=== PATIENT | male | born 1945 | race Caucasian/White ===

== ENCOUNTER 2017-03-19 17:11 | Inpatient (IN) | payer MEDICARE ==
[2017-03-19] MEDS ORDERED: Ondansetron ODT 4 MG TAB PO PRN (18:53)
[2017-03-19] MEDS ORDERED: PROVENTIL INHALER 6.7 G (200 INHALATIONS) INH PRN (18:59)
[2017-03-19] MEDS: Mupirocin 2% Ointment 22 GM Tube TOP SCH (21:21)
[2017-03-19] MEDS: Famotidine 20 MG TAB PO SCH (21:21)
[2017-03-19] MEDS: Carvedilol 3.125 MG TAB PO SCH (21:21)
[2017-03-19 22:29] LABS: Bilirubin Negative (Negative); Blood, Urine Large (Negative); Clarity Cloudy (Clear); Glucose, Urine (Dipstick) Negative (Negative); Leukocyte Moderate (Negative); Nitrite Negative (Negative); Protein, Urine (Dipstick) > or equal to 300 mg/dL (Neg-Trace); pH, Urine 7.5 (5.0-9.0)
[2017-03-19 22:44] LABS: Bacteria/HPF 3+ HPF (None Seen); Squamous Epithelial None Seen HPF (0-3)
[2017-03-20] MEDS: Mometasone/Formoterol 60 PUFF AER INH SCH ×2 (05:46→17:27)
[2017-03-20 06:06] LABS: #Eosinphils 0.3 thou/uL (0.0-0.7); #Lymphocytes 1.4 thou/uL (1.20-3.40); #Monocytes 0.7 thou/uL (0.11-0.59); #Neutrophils 8.8 thou/uL (1.40-6.50); %Basophils 0.4 % (0.0-1.0); %Eosinophils 2.7 % (0.0-10.0); %Lymphocytes 12.5 % (21.0-51.0); %Monocytes 6.2 % (0.0-10.0); %Neutrophils 78.2 % (42.0-75.0); Hemoglobin 8.1 g/dL (14.0-18.0); Mean Corpuscular HGB CONC 31.2 g/dL (32.0-36.0); Mean Corpuscular Hemoglobin 32.3 pg (27.0-31.0); Mean Platelet Volume 5.8 fL (7.4-10.4); Platelet Count 218 thou/uL (130-400); RBC Distribution Width 13.6 % (11.5-14.5); Red Blood Cell (RBC) Count 2.51 mill/uL (4.70-6.10); White Blood Cell (WBC) Count 11.2 thou/uL (4.8-10.8)
[2017-03-20 06:08] LABS: ALT (SGPT) 15 U/L (8-55); AST (SGOT) 39 U/L (5-34); Albumin 2.6 g/dL (3.4-4.8); Alkaline Phosphatase 44 U/L (40-150); Anion Gap 12 mmol/L (10-20); BUN (Urea Nitrogen) 19 mg/dL (8.4-25.7); Bilirubin, Total 0.6 mg/dL (0.2-1.2); Calc. Creatinine Clearance 41 mL/min (70-130); Calcium 8.3 mg/dL (7.8-10.44); Carbon Dioxide 22 mmol/L (23-31); Chloride 111 mmol/L (98-107); Estimated GFR-MDRD 56; Globulin 2.6 g/dL (2.4-3.5); Glucose 83 mg/dL (83-110); Potassium 4.2 mmol/L (3.5-5.1); Protein, Total 5.2 g/dL (5.8-8.1); Sodium 141 mmol/L (136-145)
--- NOTE | 2017-03-20 08:11 | HP ---
DATE OF ADMISISON: 03/19/2017 CHIEF COMPLAINT: 1. Severe deconditioning. 2. Nonischemic cardiomyopathy. 3. Upper gastrointestinal bleed. 4. Urinary retention. 5. Chronic obstructive pulmonary disease. 6. Status post recent intestinal obstruction. HISTORY OF PRESENT ILLNESS: The patient is a very pleasant 71-year-old white male with a long histo ry of COPD, nonischemic cardiomyopathy, status post AICD placement and benign prostatic hypertrophy with recurrent urinary retention who presented to [facility] on 03/09/2017 with sudden onset of abdo sandra pain and nausea. He was found to have CT scan showing possible left renal mass and with hepat ic metastases as well as small bowel loops, thickening of the colon consistent with omental thickeni ng suspicious for metastatic disease. The patient was taken to the OR where he was found to have ad hesions causing ischemia of the small bowel with intestinal obstruction from this. This was relieve d without any complications except for some mild postoperative ileus; however, he did also subsequen tly developed a GI bleed from his vomiting previous to the relief of obstruction, which was evaluate d with an EGD with finding of a Beatriz-Mcdaniel tear with no active bleeding. He subsequently slowly improved. He did require García catheterization, which was difficult to place and therefore has been kept on transfer. He also was seen by his physician primary care sports medicine, Dr. Nikhil Cohen and felt to be stable. He did have an episode of what appeared to be intermittent atrial fibrillation/flutter, but was se en by [employer] Specialist who felt that upon interrogation of his AICD, there was no significant atr ial flutter and that would be monitored closely as he was asymptomatic. No further treatment was re quired. He slowly, but surely improved, but did have some problems with weakness as he did have an ileus postop limiting his oral intake. He is therefore admitted to skilled unit, mainly for strengt hening physical therapy and occupational therapy. We will have his García catheter continued and he will be monitored for any signs of ischemia, arrhythmia or recurrent obstruction. PAST MEDICAL HISTORY: Remarkable also for history of hyperlipidemia. His nonischemic cardiomyopath y is associated with an ejection fraction of 30%. He also has a history of lymphoma in the past, st atus post radiation in remission and a history of above-mentioned coronary artery disease, nonischem ic cardiomyopathy. He has a history also of chronic kidney disease stage 3. SOCIAL HISTORY: He has a greater than [id number] history of smoking, has not smoked in a year a nd a half. He lives with his of many years. He does not drink. ALLERGIES: He has no known allergies. MEDICATIONS: Presentation to the skilled unit included aspirin 81 daily, Urecholine 25 mg q.8 hours , Symbicort 160/4.5 twice daily, carvedilol 3.125 three times daily, ferrous sulfate 325 twice daily , furosemide 20 daily, albuterol inhaler p.r.n., losartan 25 daily, Megace 800 mg daily, Protonix 40 daily, Crestor 40 daily, Flomax 0.4 daily. REVIEW OF SYSTEMS: HEENT: He denies any change in his vision or hearing. He denies any hoarseness or dysphagia. Pulmonary: Denies any cough at this time, sputum production or chest pain. Cardiov ascular: Denies palpitations, orthopnea, paroxysmal nocturnal dyspnea or edema. Gastrointestinal: See history of present illness. He had no further diarrhea or vomiting in the last several days. Genitourinary: He has the above-mentioned history of asymptomatic, nontender, urinary retention. H e has no dysuria or hematuria. Musculoskeletal: Denies stiffness, swelling in joints or extremitie s. PHYSICAL EXAMINATION: GENERAL: The patient is a thin white male, appears in no acute distress, oriented x3 and cooperativ e. VITAL SIGNS: Show him to have blood pressure of 98/55, O2 sats 94%, respirations 20, pulse 94, he i s afebrile. HEENT: Pupils are equal, round, and react to light and accommodation. Sclerae are anicteric, conju nctivae pale. Oral mucous membranes are well hydrated. NECK: Supple. No nodes or masses. JVPs are not elevated. LUNGS: Clear. CARDIAC: Show regular rhythm. No gallops or murmurs. AICD is in place. ABDOMEN: Soft and nontender with healing laparotomy scar. Good bowel sounds. SKIN/EXTREMITIES: Display no edema, clubbing, cyanosis. NEUROLOGIC: Intact. LABORATORY DATA AND X-RAY FINDINGS: Show urine culture done 3 days ago growing Klebsiella, sensitiv e to Cipro and Levaquin. Urinalysis did show greater than 50 white cells. Sodium was 141, potassiu m 4.2, chloride 111, bicarbonate 22, BUN is 19, creatinine 1.27, glucose is 83, calcium 8.3, AST 39, ALT 15, total protein 5.2, albumin 2.6. White count 11,200, hematocrit 26, hemoglobin 8.1. ASSESSMENT AND PLAN: A 71-year-old white male with a history of underlying chronic obstructive pulm onary disease, nonischemic cardiomyopathy with ejection fraction of 30%-35% and an AICD, who present ed with acute obstruction, it is found to be due to adhesions and was relieved with laparotomy and l ysis of adhesions with only complications of postoperative ileus. However, he was also found to hav e a left renal mass concerning for carcinoma with no evidence of metastasis in the liver on biopsy. He has done well postop with only one episode of GI bleeding from a Beatriz-Mcdaniel tear, which has r esolved, but is persistently anemic and was not given any transfusion. He is very weak and has been ambulating with therapy and is admitted for PT, OT. He does have underlying history of chronic kid forrest disease with a creatinine of 1.27, which is stable and a history of urinary retention requiring chronic García catheterization despite tamsulosin and will be followed up on discharge with Dr. Tala acosta. He has also been found to have a Klebsiella urinary tract infection at this time, which is not b eing treated and be started on Cipro 500 twice daily as it is sensitive to this and will be treated for 10 days. He will be monitored closely for signs of recurrent arrhythmias. He did appear to hav e possible paroxysmal atrial fibrillation/atrial flutter seen by the EP doctors, but was not treated with recommendations for possible sotalol treatment in the future if recurs and he will be continue d on treatment for his chronic obstructive pulmonary disease with Symbicort and albuterol as needed, monitor closely and will be stressed to increase his oral nutrition. His albumin is very low at 2. 6 despite being on Megace.
[2017-03-20] MEDS ORDERED: Enoxaparin Sodium 40 MG/0.4 ML SYRINGE SC SCH (09:00)
[2017-03-20] MEDS ORDERED: Megestrol Acetate 800 MG/20 ML UDCUP PO SCH (09:00)
[2017-03-20] MEDS: Furosemide 20 MG TAB PO SCH (09:33)
[2017-03-20] MEDS: Multivitamin W/ Minerals 1 TAB PO SCH (09:33)
[2017-03-20] MEDS: Ferrous Sulfate 325 MG TAB PO SCH ×2 (09:33→17:27)
[2017-03-20] MEDS: Losartan Potassium 25 MG TAB PO SCH (09:33)
[2017-03-20] MEDS: Ubidecarenone 50 MG CAP PO SCH (09:33)
[2017-03-20] MEDS: Famotidine 20 MG TAB PO SCH ×2 (09:33→20:46)
[2017-03-20] MEDS: Tamsulosin HCl 0.4 MG CAP PO SCH (09:34)
[2017-03-20] MEDS: Carvedilol 3.125 MG TAB PO SCH ×3 (09:34→20:46)
[2017-03-20] MEDS: Aspirin 81 mg Enteric Coated Tablet PO SCH (09:34)
[2017-03-20] MEDS: Mupirocin 2% Ointment 22 GM Tube TOP SCH ×3 (09:38→20:46)
[2017-03-20] MEDS ORDERED: Megestrol Acetate 400 MG/10 ML UDCUP PO SCH (10:00)
--- NOTE | 2017-03-20 17:58 | RAD ---
TWO VIEWS CHEST: Date: 03-20-17 Comparison: Frontal radiograph chest, 03-15-17 History: Ischemic cardiomyopathy. FINDINGS: There is a 3-lead AICD inserted via left sided approach. There is no pneumothorax noted. There is bl unting of bilateral costophrenic angles suggesting small bilateral pleural effusions, right larger t jackson left. No lobar consolidation or alveolar edema. Pleural fluid is not significantly changed when compared to 03-15-17 exam. IMPRESSION: Nonspecific small bilateral pleural effusions, right greater than left. No lobar consolidation or al veolar edema. POS: [facility]
[2017-03-20] MEDS: Cipro 250 MG TAB PO SCH (20:45)
[2017-03-21] MEDS: Mometasone/Formoterol 60 PUFF AER INH SCH ×2 (05:29→17:34)
[2017-03-21] MEDS: Cipro 250 MG TAB PO SCH ×2 (05:29→20:43)
--- NOTE | 2017-03-21 08:01 | PRG ---
DATE OF SERVICE: 03/21/2017 SUBJECTIVE: The patient feels better, increased strength, cooperating well with therapy, eating bet ter, having minimal abdominal pain, no nausea and vomiting. OBJECTIVE: VITAL SIGNS: Blood pressure 107/53, pulse is 93, respirations 18, O2 sat 93%, he is afebrile. LUNGS: Lungs are clear. CARDIAC: Cardiac examination shows regular rhythm. ABDOMEN: Abdomen is soft and nontender. Evaluated by PT yesterday and walked 230 feet. ASSESSMENT: 1. Improving deconditioning. 2. Resolved intestinal obstruction status post adhesions. 3. Persistent left renal cancer. 4. Persistent benign prostatic hypertrophy on García catheterization. 5. Stable nonischemic cardiomyopathy, ejection fraction of 30-35% and an AICD placement. 6. No further GI bleeding from resolved Beatriz-Mcdaniel tear. 7. Klebsiella urinary tract infection, on treatment with Cipro. 8. Paroxysmal atrial fibrillation, no evidence of recurrence at this time.
[2017-03-21] MEDS: Ubidecarenone 50 MG CAP PO SCH (08:41)
[2017-03-21] MEDS: Multivitamin W/ Minerals 1 TAB PO SCH (08:42)
[2017-03-21] MEDS: Ferrous Sulfate 325 MG TAB PO SCH ×2 (08:42→17:34)
[2017-03-21] MEDS: Furosemide 20 MG TAB PO SCH (08:42)
[2017-03-21] MEDS: Aspirin 81 mg Enteric Coated Tablet PO SCH (08:42)
[2017-03-21] MEDS: Famotidine 20 MG TAB PO SCH ×2 (08:43→20:41)
[2017-03-21] MEDS: Megestrol Acetate 400 MG/10 ML UDCUP PO SCH (08:43)
[2017-03-21] MEDS: Mupirocin 2% Ointment 22 GM Tube TOP SCH ×3 (08:43→20:39)
[2017-03-21] MEDS: Tamsulosin HCl 0.4 MG CAP PO SCH (08:43)
[2017-03-21] MEDS: Carvedilol 3.125 MG TAB PO SCH ×3 (08:43→20:41)
[2017-03-21] MEDS: Losartan Potassium 25 MG TAB PO SCH (08:43)
[2017-03-22] MEDS: Cipro 250 MG TAB PO SCH ×2 (05:30→20:42)
[2017-03-22] MEDS: Mometasone/Formoterol 60 PUFF AER INH SCH ×2 (05:30→17:14)
[2017-03-22] MEDS: Multivitamin W/ Minerals 1 TAB PO SCH (09:00)
[2017-03-22] MEDS: Ferrous Sulfate 325 MG TAB PO SCH ×2 (09:00→17:13)
[2017-03-22] MEDS: Megestrol Acetate 400 MG/10 ML UDCUP PO SCH (09:00)
[2017-03-22] MEDS: Carvedilol 3.125 MG TAB PO SCH ×3 (09:01→20:42)
[2017-03-22] MEDS: Furosemide 20 MG TAB PO SCH (09:01)
[2017-03-22] MEDS: Aspirin 81 mg Enteric Coated Tablet PO SCH (09:01)
[2017-03-22] MEDS: Ubidecarenone 50 MG CAP PO SCH (09:01)
[2017-03-22] MEDS: Tamsulosin HCl 0.4 MG CAP PO SCH (09:01)
[2017-03-22] MEDS: Famotidine 20 MG TAB PO SCH ×2 (09:01→20:42)
[2017-03-22] MEDS: Losartan Potassium 25 MG TAB PO SCH (09:01)
[2017-03-22] MEDS: Mupirocin 2% Ointment 22 GM Tube TOP SCH ×3 (09:02→20:47)
--- NOTE | 2017-03-22 09:50 | PRG ---
DATE OF SERVICE: 03/22/2017 SUBJECTIVE: The patient feels well with no complaints of pain, nausea, vomiting, shortness of breat h or chest pain. Has been sleeping well, eating fair as he has never had a good appetite, but did w alk 230 feet yesterday with therapy. No palpitations, chest pain or shortness of breath. OBJECTIVE: VITAL SIGNS: Blood pressure is 104/52, O2 sat is 95%, respirations 18, pulse 97, temperature 98.4. LUNGS: Clear. CARDIAC: Examination shows regular rhythm, S4, no other gallops or murmurs. ABDOMEN: Shows a healing laparotomy scar with minimal tenderness. García catheter is in place with no blood in catheter. PT showed as mentioned above, no orthostatic changes during therapy. ASSESSMENT: 1. Resolving intestinal obstruction secondary to lysis of adhesions, healing well. 2. Left renal mass with no symptoms at this time. 3. Paroxysmal atrial fibrillation, still in normal sinus rhythm. 4. Ischemic cardiomyopathy. No evidence of chest pain or shortness of breath. 5. History of gastrointestinal bleed with no evidence for recurrence. 6. Benign prostatic hypertrophy requiring García catheterization. 7. Klebsiella urinary tract infection, on Cipro with no symptoms. PLAN: 1. Continue Cipro 2. Continue PT, OT, monitoring vital signs. 3. Continue stress oral intake.
[2017-03-23] MEDS: Mometasone/Formoterol 60 PUFF AER INH SCH ×2 (05:41→18:51)
[2017-03-23] MEDS: Cipro 250 MG TAB PO SCH ×2 (05:41→21:05)
[2017-03-23] MEDS: Ferrous Sulfate 325 MG TAB PO SCH ×2 (08:08→16:59)
[2017-03-23] MEDS: Ubidecarenone 50 MG CAP PO SCH (08:09)
[2017-03-23] MEDS: Famotidine 20 MG TAB PO SCH ×2 (09:08→21:06)
[2017-03-23] MEDS: Aspirin 81 mg Enteric Coated Tablet PO SCH (09:08)
[2017-03-23] MEDS: Furosemide 20 MG TAB PO SCH (09:08)
[2017-03-23] MEDS: Megestrol Acetate 400 MG/10 ML UDCUP PO SCH (09:08)
[2017-03-23] MEDS: Multivitamin W/ Minerals 1 TAB PO SCH (09:09)
[2017-03-23] MEDS: Carvedilol 3.125 MG TAB PO SCH ×3 (09:09→21:06)
[2017-03-23] MEDS: Mupirocin 2% Ointment 22 GM Tube TOP SCH ×3 (09:11→22:20)
[2017-03-23 11:36] LABS: #Basophils 0.1 thou/uL (0.0-0.2); #Eosinphils 0.3 thou/uL (0.0-0.7); #Lymphocytes 1.9 thou/uL (1.20-3.40); #Monocytes 0.8 thou/uL (0.11-0.59); #Neutrophils 10.4 thou/uL (1.40-6.50); %Basophils 0.7 % (0.0-1.0); %Eosinophils 1.9 % (0.0-10.0); %Lymphocytes 13.9 % (21.0-51.0); %Monocytes 6.2 % (0.0-10.0); %Neutrophils 77.4 % (42.0-75.0); Hemoglobin 9.4 g/dL (14.0-18.0); Mean Corpuscular HGB CONC 31.9 g/dL (32.0-36.0); Mean Corpuscular Hemoglobin 33.2 pg (27.0-31.0); Mean Platelet Volume 5.6 fL (7.4-10.4); Platelet Count 389 thou/uL (130-400); RBC Distribution Width 14.4 % (11.5-14.5); Red Blood Cell (RBC) Count 2.83 mill/uL (4.70-6.10); White Blood Cell (WBC) Count 13.5 thou/uL (4.8-10.8)
[2017-03-23 13:22] LABS: Anion Gap 18 mmol/L (10-20); BUN (Urea Nitrogen) 21 mg/dL (8.4-25.7); Calc. Creatinine Clearance 35 mL/min (70-130); Calcium 8.3 mg/dL (7.8-10.44); Carbon Dioxide 20 mmol/L (23-31); Chloride 108 mmol/L (98-107); Estimated GFR-MDRD 46; Glucose 162 mg/dL (83-110); Potassium 4.2 mmol/L (3.5-5.1); Sodium 142 mmol/L (136-145)
[2017-03-23] MEDS ORDERED: Losartan Potassium 25 MG TAB PO SCH (21:00)
[2017-03-23] MEDS: Losartan Potassium 25 MG TAB PO SCH (21:06)
[2017-03-23] MEDS: Tamsulosin HCl 0.4 MG CAP PO SCH (22:20)
--- NOTE | 2017-03-23 23:32 | PRG ---
DATE OF SERVICE: 03/23/2017 SUBJECTIVE: The patient feels well, up and moving around with increased strength. No chest pain, n o shortness of breath, no abdominal pain, tolerating therapy well. He walked 120 feet without any d ifficulty, but is still weak and requires assistance. OBJECTIVE: Pulse is 96, blood pressure up to 129/61, O2 sat is 97%, afebrile. LABORATORY DATA: Shows white count persistently elevated at 13,500, hematocrit 29, hemoglobin 9.4. Urinalysis did show urinary tract infection, on treatment with Cipro 500 twice daily for Klebsiella urinary tract infection. Renal function shows worsening renal function with creatinine up to 1.5 f rom 1.27 and GFR down to 46 to 56. Sodium 142, potassium 4.2, chloride 108, bicarbonate is 20. ASSESSMENT: 1. Resolving intestinal obstruction. 2. Persistent left renal mass. 3. Paroxysmal atrial fibrillation in sinus rhythm. 4. Ischemic cardiomyopathy with stable blood pressure. 5. History of GI bleed, no evidence of recurrence. 6. Benign prostatic hypertrophy with chronic García. 7. Klebsiella urinary tract infection, on Cipro, but with increasing white count and decreasing kyleigh al function. PLAN: Continue Cipro. Continue PT, OT, stress need to force fluids. Repeat basic metabolic profil e, CBC in the a.m. and may need to start IV. Give family the name of another urologist to see on lucas conley for García catheter and was given the name of Dr. Waters.
[2017-03-24] MEDS: Cipro 250 MG TAB PO SCH ×2 (05:46→22:45)
[2017-03-24] MEDS: Mometasone/Formoterol 60 PUFF AER INH SCH ×2 (05:46→17:52)
[2017-03-24] MEDS: Ferrous Sulfate 325 MG TAB PO SCH ×2 (08:19→17:03)
[2017-03-24] MEDS: Ubidecarenone 50 MG CAP PO SCH (08:19)
[2017-03-24] MEDS: Carvedilol 3.125 MG TAB PO SCH ×3 (08:19→22:43)
[2017-03-24] MEDS: Aspirin 81 mg Enteric Coated Tablet PO SCH (08:19)
[2017-03-24] MEDS: Famotidine 20 MG TAB PO SCH ×2 (08:20→22:43)
[2017-03-24] MEDS: Megestrol Acetate 400 MG/10 ML UDCUP PO SCH (08:20)
[2017-03-24] MEDS: Multivitamin W/ Minerals 1 TAB PO SCH (08:20)
[2017-03-24] MEDS: Furosemide 20 MG TAB PO SCH (08:20)
[2017-03-24] MEDS: Mupirocin 2% Ointment 22 GM Tube TOP SCH ×3 (08:31→22:43)
[2017-03-24 10:35] LABS: ALT (SGPT) 17 U/L (8-55); AST (SGOT) 32 U/L (5-34); Albumin 3.1 g/dL (3.4-4.8); Alkaline Phosphatase 48 U/L (40-150); Anion Gap 17 mmol/L (10-20); BUN (Urea Nitrogen) 24 mg/dL (8.4-25.7); Bilirubin, Total 0.5 mg/dL (0.2-1.2); Calc. Creatinine Clearance 38 mL/min (70-130); Calcium 8.2 mg/dL (7.8-10.44); Carbon Dioxide 18 mmol/L (23-31); Chloride 110 mmol/L (98-107); Estimated GFR-MDRD 51; Globulin 2.8 g/dL (2.4-3.5); Glucose 114 mg/dL (83-110); Potassium 4.8 mmol/L (3.5-5.1); Protein, Total 5.9 g/dL (5.8-8.1); Sodium 140 mmol/L (136-145)
[2017-03-24 10:36] LABS: #Basophils 0.1 thou/uL (0.0-0.2); #Eosinphils 0.3 thou/uL (0.0-0.7); #Lymphocytes 1.8 thou/uL (1.20-3.40); #Monocytes 1.1 thou/uL (0.11-0.59); #Neutrophils 10.6 thou/uL (1.40-6.50); %Basophils 0.7 % (0.0-1.0); %Lymphocytes 12.7 % (21.0-51.0); %Monocytes 7.8 % (0.0-10.0); %Neutrophils 76.9 % (42.0-75.0); Hemoglobin 9.3 g/dL (14.0-18.0); Mean Corpuscular HGB CONC 29.8 g/dL (32.0-36.0); Mean Corpuscular Hemoglobin 32.4 pg (27.0-31.0); Mean Platelet Volume 5.3 fL (7.4-10.4); Platelet Count 368 thou/uL (130-400); RBC Distribution Width 14.7 % (11.5-14.5); Red Blood Cell (RBC) Count 2.89 mill/uL (4.70-6.10); White Blood Cell (WBC) Count 13.7 thou/uL (4.8-10.8)
--- NOTE | 2017-03-24 10:40 | CT ---
ABDOMEN AND PELVIS CT NONCONTRAAST: Date: 03/24/17 COMPARISON: 03/15/17. INDICATION: Fever, leukocytosis. FINDINGS: Bilateral pleural effusions are present with adjacent consolidation at the lung base. There is diffu se vascular calcification. The solid abdominal organs, bowel, lymph nodes, and vasculature are limit ed in assessment without IV or enteric contrast. There is diffuse prominent vascular calcification. Urinary bladder is unopacified and demonstrates a rightward deviation within the pelvis with areas o f coapted density that may relate to impression by adjacent unopacified bowel. Irregular morphology with interspersed multifocal hypodensity of the left kidney is present, corresponding to findings on prior CT, although incompletely assessed on this exam. There is redemonstration of hypoattenuation within the hepatic parenchyma, incompletely assessed. The gallbladder is contracted. There is diffus e mesenteric haziness. There is prominent retained fecal material of the colon. Evaluation otherwise limited on the basis of noncontrast technique. IMPRESSION: 1. Limited evaluation by noncontrast examination. 2. There is diffuse retained fecal material in the colon. 3. Scattered areas of interspersed mesenteric edema are nonspecific, although patient did demonstra te ascites on prior exam, and this may therefore relate to residua. Recommend clinical correlation t o exclude an acute infiltrative process. 4. Bilateral pleural effusions with adjacent consolidation. 5. Redemonstration of abnormality of the left kidney as discussed above, incompletely evaluated on the basis of noncontrast technique. Consider continued imaging follow-up as appropriate. POS: [facility]
[2017-03-24] MEDS: Acetaminophen 325 MG TAB PO PRN (12:29)
[2017-03-24 19:59] LABS: Bilirubin Negative (Negative); Blood, Urine Moderate (Negative); Clarity Clear (Clear); Glucose, Urine (Dipstick) Negative (Negative); Leukocyte Negative (Negative); Nitrite Negative (Negative); Protein, Urine (Dipstick) Trace mg/dL (Neg-Trace); Specific Gravity, Urine 1.015 (1.005-1.030); Urobilinogen 0.2 mg/dL (0.2-1.0); pH, Urine 5.5 (5.0-9.0)
[2017-03-24 20:04] LABS: Squamous Epithelial 0-3 HPF (0-3)
[2017-03-24] MEDS: Tamsulosin HCl 0.4 MG CAP PO SCH (22:43)
[2017-03-24] MEDS: Losartan Potassium 25 MG TAB PO SCH (22:43)
[2017-03-25] MEDS: Mometasone/Formoterol 60 PUFF AER INH SCH ×2 (06:14→17:41)
[2017-03-25] MEDS: Ubidecarenone 50 MG CAP PO SCH ×2 (06:14→06:15)
[2017-03-25] MEDS: Cipro 250 MG TAB PO SCH ×2 (06:15→20:45)
[2017-03-25] MEDS: HYDROcodone/Acetaminophen 5/325 mg Tablet PO PRN ×3 (06:31→18:46)
--- NOTE | 2017-03-25 06:59 | PRG ---
ATE OF SERVICE: 03/24/2017 SUBJECTIVE: The patient complains of back pain today limiting him with his therapy, also was found to have some slight sweats, but no real fever, chills, cough. No nausea, vomiting, no diarrhea, no abdominal pain. OBJECTIVE: VITAL SIGNS: Blood pressure 110/52, pulse 88, temperature 96.8, O2 sats 97%. LUNGS: Clear with decreased breath sounds in the bases. CARDIAC: Irregular rhythm. ABDOMEN: Soft and nontender. BACK: Does show some mild left CVA tenderness. LABORATORY DATA: Shows white count stable at 13,700, hematocrit 31, hemoglobin 9.3. CT scan of the abdomen and pelvis showed bilateral pleural effusions and consolidation and persistent left renal m ass. ASSESSMENT: 1. Bilateral effusions and atelectasis most likely due to underlying chronic ischemic cardiomyopath y. 2. Benign prostatic hypertrophy with chronic García catheter and Klebsiella urinary tract infection, on Cipro with repeat culture pending. 3. Paroxysmal atrial fibrillation, persistent sinus rhythm. 4. Persistent left renal mass with no evidence of worsening. PLAN: 1. I discussed pain with family and the patient. I feel this may be due to the renal mass and we w ill monitor over the weekend and may need to refer back to a field service supervisor for further evaluation. 2. Obtain results of urine culture to see if persistent sensitivity to Cipro by the Klebsiella urin pete tract infection. 3. from PT over the weekend. 4. Continue to monitor for angina and congestive heart failure. 5. Continue on carvedilol, furosemide, and losartan.
[2017-03-25] MEDS: Furosemide 20 MG TAB PO SCH (08:51)
[2017-03-25] MEDS: Ferrous Sulfate 325 MG TAB PO SCH ×2 (08:51→17:40)
[2017-03-25] MEDS: Multivitamin W/ Minerals 1 TAB PO SCH (08:51)
[2017-03-25] MEDS: Famotidine 20 MG TAB PO SCH ×2 (08:52→20:46)
[2017-03-25] MEDS: Carvedilol 3.125 MG TAB PO SCH ×3 (08:52→20:46)
[2017-03-25] MEDS: Megestrol Acetate 400 MG/10 ML UDCUP PO SCH (08:52)
[2017-03-25] MEDS: Aspirin 81 mg Enteric Coated Tablet PO SCH (08:52)
[2017-03-25] MEDS: Mupirocin 2% Ointment 22 GM Tube TOP SCH ×3 (08:52→20:45)
--- NOTE | 2017-03-25 11:42 | PRG ---
DATE OF SERVICE: 03/25/2017 SUBJECTIVE: Mr. Barnes is doing well. He states that the pain is improved with the pain medication . He denies any fever or chills. He states he is waiting for his to show up, so he can get up and walk. Discussed with nursing and no concerns. OBJECTIVE: VITAL SIGNS: He is afebrile, heart rate is 95, respiration is 20, oxygen saturation is 97%, and blo od pressure is 111/59. CARDIOVASCULAR SYSTEM: S1 and S2 plus. RESPIRATORY SYSTEM: Normal vesicular breath sounds. ABDOMEN: Soft, scaphoid, nontender, bowel sounds are heard in all quadrants. EXTREMITIES: Without cyanosis or clubbing. CENTRAL NERVOUS SYSTEM: Improving deconditioning. García catheter in place. IMPRESSION: 1. Chronic ischemic cardiomyopathy with bilateral pleural effusions, which are stable. 2. Benign prostatic hypertrophy with chronic García and resolving Klebsiella urinary tract infection . 3. Paroxysmal atrial fibrillation. 4. Left renal mass. 5. Dyslipidemia. 6. Chronic obstructive pulmonary disease, stable. PLAN: 1. Continue current medications. 2. Nutritional support. 3. DVT and stress ulcer prophylaxis. 4. Decubitus precautions. 5. Breathing treatments. 6. Heart healthy diet. 7. Pain control. 8. Physical therapy. 9. Antibiotics for his Klebsiella urinary tract infection. 10. Discussed with patient in detail and all questions answered.
[2017-03-25] MEDS: Losartan Potassium 25 MG TAB PO SCH (20:45)
[2017-03-25] MEDS: Tamsulosin HCl 0.4 MG CAP PO SCH (20:46)
[2017-03-26] MEDS: HYDROcodone/Acetaminophen 5/325 mg Tablet PO PRN ×4 (01:35→20:26)
[2017-03-26] MEDS: Cipro 250 MG TAB PO SCH ×2 (06:04→20:27)
[2017-03-26] MEDS: Mometasone/Formoterol 60 PUFF AER INH SCH ×2 (06:04→17:53)
[2017-03-26] MEDS: Ubidecarenone 50 MG CAP PO SCH (09:31)
[2017-03-26] MEDS: Famotidine 20 MG TAB PO SCH ×2 (09:32→20:27)
[2017-03-26] MEDS: Multivitamin W/ Minerals 1 TAB PO SCH (09:32)
[2017-03-26] MEDS: Furosemide 20 MG TAB PO SCH (09:32)
[2017-03-26] MEDS: Ferrous Sulfate 325 MG TAB PO SCH ×2 (09:32→17:51)
[2017-03-26] MEDS: Carvedilol 3.125 MG TAB PO SCH ×3 (09:32→20:27)
[2017-03-26] MEDS: Megestrol Acetate 400 MG/10 ML UDCUP PO SCH (09:33)
[2017-03-26] MEDS: Aspirin 81 mg Enteric Coated Tablet PO SCH (09:33)
[2017-03-26] MEDS: Mupirocin 2% Ointment 22 GM Tube TOP SCH ×3 (09:38→20:26)
[2017-03-26 15:46] VITALS: BMI 17.7
--- NOTE | 2017-03-26 16:01 | PRG ---
DATE OF SERVICE: 03/26/2017 SUBJECTIVE: Mr. Barnes is doing the same. His spouse is in the room and denies any complaints. He apparently has been ambulating with his assisting him. OBJECTIVE: VITAL SIGNS: He is afebrile, heart rate 91, respirations 20, oxygen saturation 95%, blood pressure is 100/55. CARDIOVASCULAR SYSTEM: S1, S2 plus. RESPIRATORY SYSTEM: Normal vesicular breath sounds. ABDOMEN: Soft, nontender, bowel sounds heard in all quadrants. EXTREMITIES: Without cyanosis or clubbing. CENTRAL NERVOUS SYSTEM: Improving deconditioning. IMPRESSION: 1. Chronic ischemic cardiomyopathy. 2. Benign prostatic hypertrophy with Klebsiella urinary tract infection. 3. Paroxysmal atrial fibrillation. 4. Left renal mass. 5. Dyslipidemia. 6. Chronic obstructive pulmonary disease. PLAN: 1. Recheck laboratory values in the morning. 2. Continue current medications. 3. Nutritional support. 4. DVT and stress ulcer prophylaxis. 5. Decubitus precautions. 6. Breathing treatment. 7. Monitor urinary tract infection. 8. Dr. Felix will resume care at 9:00 p.mShonda unger.
[2017-03-26] MEDS: Tamsulosin HCl 0.4 MG CAP PO SCH (20:27)
[2017-03-26] MEDS: Losartan Potassium 25 MG TAB PO SCH (20:28)
[2017-03-26] MEDS: Acetaminophen 325 MG TAB PO PRN (22:34)
[2017-03-27] MEDS: HYDROcodone/Acetaminophen 5/325 mg Tablet PO PRN ×2 (05:19→11:30)
[2017-03-27 05:28] LABS: Band 4 % (5-11); Eosinophils 3 % (0-10); Hemoglobin 9.8 g/dL (14.0-18.0); Lymphocytes 17 % (21-51); MDiff Complete? YES; Mean Corpuscular HGB CONC 32.3 g/dL (32.0-36.0); Mean Corpuscular Hemoglobin 32.4 pg (27.0-31.0); Monocytes 6 % (0-10); Neutrophil 70 % (42-75); PLT Morphology Comment Appears Adequate; Platelet Count 412 thou/uL (130-400); RBC Morphology Normal; Red Blood Cell (RBC) Count 3.02 mill/uL (4.70-6.10); White Blood Cell (WBC) Count 9.8 thou/uL (4.8-10.8)
[2017-03-27 05:37] LABS: Anion Gap 15 mmol/L (10-20); BUN (Urea Nitrogen) 25 mg/dL (8.4-25.7); Calc. Creatinine Clearance 40 mL/min (70-130); Calcium 9.2 mg/dL (7.8-10.44); Carbon Dioxide 22 mmol/L (23-31); Chloride 106 mmol/L (98-107); Estimated GFR-MDRD 55; Glucose 98 mg/dL (83-110); Potassium 4.7 mmol/L (3.5-5.1); Sodium 138 mmol/L (136-145)
[2017-03-27] MEDS: Mometasone/Formoterol 60 PUFF AER INH SCH (06:24)
[2017-03-27] MEDS: Megestrol Acetate 400 MG/10 ML UDCUP PO SCH (08:07)
[2017-03-27] MEDS: Famotidine 20 MG TAB PO SCH (08:08)
[2017-03-27] MEDS: Ubidecarenone 50 MG CAP PO SCH (08:08)
[2017-03-27] MEDS: Aspirin 81 mg Enteric Coated Tablet PO SCH (08:08)
[2017-03-27] MEDS: Multivitamin W/ Minerals 1 TAB PO SCH (08:08)
[2017-03-27] MEDS: Furosemide 20 MG TAB PO SCH (08:09)
[2017-03-27] MEDS: Mupirocin 2% Ointment 22 GM Tube TOP SCH (08:09)
[2017-03-27] MEDS: Ferrous Sulfate 325 MG TAB PO SCH (08:09)
[2017-03-27] MEDS: Carvedilol 3.125 MG TAB PO SCH (08:09)
[2017-03-27 08:10] VITALS: BP 111/52; TEMP 98
--- NOTE | 2017-03-27 20:13 | DIS ---
DATE OF ADMISSION: 03/19/2017 DATE OF DISCHARGE: 03/27/2017 FINAL DIAGNOSES: 1. Significant deconditioning, resolved. 2. Recent intestinal obstruction secondary to ileus postop secondary to adhesions with postoperativ e ileus, resolved. 3. Postoperative gastrointestinal bleed secondary to Beatriz-Mcdaniel tear, resolved with no recurrenc e. 4. Benign prostatic hypertrophy with urinary retention requiring chronic García catheterization and recent Klebsiella urinary tract infection with resolved urinary tract infection, but persistent Fole y catheter on discharge on recommendation of Neurology. 5. Left renal mass, most concerning for neoplasm to follow up with Dr. Amin, urologist on 017 with pain medications as needed. 6. Chronic obstructive pulmonary disease, stable with recent postoperative respiratory failure, res olved. 7. Nonischemic cardiomyopathy, status post automatic implantable cardioverter defibrillator, stable with recent exacerbation of systolic congestive heart failure. 8. Episode of intermittent atrial fibrillation, controlled with carvedilol. 9. History of lymphoma status post radiation in remission. 10. Chronic kidney disease stage 3, stable. HOSPITAL COURSE: The patient is a thin white male who was admitted with severe weakness, deconditio lucas with no real symptoms of shortness of breath or chest pain and who did well during his therapy. Initial vital signs showing to have blood pressure of 98/55 with O2 sat of 94%, respirations 20, p ulse 94, afebrile. This remained stable, but he is slightly improved with discharge blood pressure of 111/52, O2 sat 93% on room air, respirations 18, pulse 97, afebrile at 98. His lungs remained cl ear with decreased breath sounds. Cardiac examination showed regular rhythm. No gallops or murmurs . The abdomen was soft with healing incision. No real tenderness. Good bowel sounds. There was s ome tenderness in the left CVA area. This with the CT scan showing no findings other than the left renal mass. This was controlled with hydrocodone. He cooperated well with therapy. He was walking in the bear 200 feet. He was doing all of the ADLs and was being minimal assistance by his , a nd therefore he was felt to be stable to be discharged home. He was started on Cipro on admission f or Klebsiella urinary tract infection, has resolved after treatment with clear urine and it is felt that did not require any treatment, but he was discharged home on García catheter. On discharge, his white count was 9800, hematocrit was 30, hemoglobin 9800. Sodium was 138, potassium 4.7, chloride 106, bicarbonate 22, BUN 25, creatinine 1.28, glucose 98. He will follow up with Dr. Amin on 03/17. His medications have been called and including hydrocodone 5/325 for pain.
--- NOTE | 2017-03-31 13:33 | PQF ---
ANN RODRIGUEZ LUKE MD [id number] CLINICAL DOCUMENTATION CLARIFICATION FORM: POST DISCHARGE Addendum to original discharge summary date: ____ Late entry note date: __ DATE: 03/31/2017 ATTN: DR. PADRON Please exercise your independent, professional judgment in responding to the clarification form. Clinical indicators are provided on the bottom of this form for your review Please check appropriate box(s): [ ] UTI please specify if due to or related to (as applicable): [ ] Indwelling catheter [ ] Self-catheterization [ ] Suprapubic catheter [ ] Unable to determine etiology UTI Site: [ ] Kidney [ ] Ureter [ ] Bladder [ ] Urethra [ ] Unable to determine Specify Organism (if known): [ ] Unknown organism [ ] Contaminated urine specimen without UTI [ ] Other diagnosis [ ] Unable to determine In addition, please specify: Present on Admission (POA): [ ] Yes [ ] No [ ] Unable to determine For continuity of documentation, please document condition throughout progress notes and discharge summary. Thank You. CLINICAL INDICATORS - SIGNS / SYMPTOMS / LABS H&P - UTI, KLEBSIELLA , MAC CATHETER DS - UTI, CHRONIC MAC CATHETERIZATION RISK FACTORS DEBILITY BPH TREATMENT: CIPRO Please provide a response below if a more specific term indicating a diagnosis and/or acuity level for this condition can be identified. Please exercise your independent, professional judgment in responding to the clarification form. Clinical indicators are providedat the top of this form for your review. Thank you. [ ] UTI Acuity:[ ] Acute[ ] Chronic[ ] Acute on Chronic Site: [ ] Kidney[ ] Ureter[ ] Bladder[ ] Urethra [ ] Other site [ ] Unable to determine [ ] UTI due to or related to: [ ] Indwelling catheter [ ] Self-catheterization [ ] Neurogenic bladder [ ] Suprapubic catheter [ ] Does not apply to this patient [ ] Unable to determine [ ] Other diagnosis: (This form is maintained as a part of the permanent medical record) 2014 [employer]. All Rights Reserved Maggie Resendez, CCS, [email or web address] [phone] MTDD
== END 2017-03-27 13:30 | disposition home health service (06) | DRG 948 ==
LOC: NAV ACUTE 17:11
PROVIDERS: ADMIT Internal Medicine; ATTEND Internal Medicine
DX: R53.1 Weakness (principal); I42.9 Cardiomyopathy, unspecified; I48.92 Unspecified atrial flutter; N39.0 Urinary tract infection, site not specified; J98.11 Atelectasis; J44.9 Chronic obstructive pulmonary disease, unspecified; I48.0 Paroxysmal atrial fibrillation; B96.1 Klebsiella pneumoniae [K. pneumoniae] as the cause of diseases classified elsewhere; Z95.810 Presence of automatic (implantable) cardiac defibrillator; Z85.72 Personal history of non-Hodgkin lymphomas; Z87.891 Personal history of nicotine dependence; Z23 Encounter for immunization; N40.1 Benign prostatic hyperplasia with lower urinary tract symptoms; R33.8 Other retention of urine; E78.5 Hyperlipidemia, unspecified; N28.89 Other specified disorders of kidney and ureter; N18.3 Chronic kidney disease, stage 3 (moderate); D64.9 Anemia, unspecified
CPT/HCPCS: 36415; 71020; 74176; 80048; 80053; 81001; 85025; 87077; 87086; 87186

== ENCOUNTER 2020-03-11 15:19 | Outpatient (CLI) | payer MEDICARE ==
--- NOTE | 2020-03-11 15:55 | RAD ---
XR Chest 1 View HISTORY: Chronic kidney disease, stage III. Lump in the chest COMPARISON: 07/05/2017 FINDINGS: The heart size is normal. A left-sided AICD is again seen. The lungs are expanded. A new 6. 5 cm mass is seen in the right suprahilar lung. No pneumothoraces or pleural effusions are seen. IMPRESSION: Right lung mass is suspicious for malignancy and should be evaluated with contrast enhanc ed CT scan of the chest.
== END 2020-03-11 15:20 | disposition home or self-care (01) ==
LOC: NAV RAD 15:19
PROVIDERS: ATTEND Internal Medicine
DX: N18.30 Chronic kidney disease, stage 3 unspecified (principal)
CPT/HCPCS: 71045